=== PATIENT | male | born 1975 | race Caucasian/White ===

== ENCOUNTER 2017-08-04 15:28 | Emergency (ER) | payer SELFPAY | END 2017-08-04 19:08 | disposition left against medical advice (07) | LOC: ER 17:18 | DX: Z53.21 Procedure and treatment not carried out due to patient leaving prior to being seen by health care provider (principal) ==

== ENCOUNTER 2017-08-06 00:35 | Emergency (ER) | payer SELFPAY ==
[~2017-08-06] VITALS: Ht 162.6 cm; Wt 77.0 kg
[2017-08-06 04:44] LABS: BASOPHILS % 0.6 % (0.0-2.0); EOSINOPHILS % 0.2 % (0.0-5.0); HEMATOCRIT. 40.5 % (42.0-52.0); HEMOGLOBIN. 13.7 g/dL (14.0-18.0); LYMPHOCYTES % 8.8 % (20.0-50.0); MEAN CORPUSCULAR HEMOGLOBIN 28.2 pg (28.0-32.0); MEAN CORPUSCULAR VOLUME 83.4 fL (80.0-94.0); MEAN PLATELET VOLUME 9.3 fl (7.4-10.4); MONOCYTES % 11.2 % (2.0-8.0); NEUTROPHILS % 79.2 % (40.0-76.0); PLATELET 182 x1000/uL (130-400); RED BLOOD CELL COUNT 4.85 mill/uL (4.7-6.1); RED CELL DISTRIBUTION WIDTH 14.1 % (11.6-14.6)
[2017-08-06] MEDS ORDERED: KETOROLAC 30MG/ML VIAL IM ONE (04:45)
[2017-08-06] MEDS ORDERED: DEXAMETHASONE 10 MG/ML VIAL IM ONE (04:45)
[2017-08-06 05:10] LABS: CARBON DIOXIDE 28 mEq/L (21-32); CHLORIDE 101 mEq/L (98-107)
[2017-08-06] MEDS ORDERED: AMOXICILLIN/POTASSIUM CLAVULANATE 875/125MG TAB PO ONE (05:45)
[2017-08-06 06:39] VITALS: BP 138/85
[2017-08-07] MEDS ORDERED: SODIUM CHLORIDE 0.9% 1,000 ML IV NR (11:30)
== END 2017-08-06 07:40 | disposition home or self-care (01) ==
LOC: ER 00:35
DX: J36 Peritonsillar abscess (principal); E86.0 Dehydration; F17.210 Nicotine dependence, cigarettes, uncomplicated; D66 Hereditary factor VIII deficiency
CPT/HCPCS: 36415; 80053; 85025; 96372; 99284; J1100; J1885; Z7610

== ENCOUNTER 2019-05-31 19:58 | Emergency (ER) | payer MEDICAID ==
[~2019-05-31] VITALS: Ht 162.6 cm; Wt 105.0 kg
[2019-05-31 23:44] LABS: BASOPHILS % 0.4 % (0.0-2.0); EOSINOPHILS % 1.5 % (0.0-5.0); HEMATOCRIT. 40.1 % (42.0-52.0); HEMOGLOBIN. 13.7 g/dL (14.0-18.0); LYMPHOCYTES % 16.6 % (20.0-50.0); MEAN CORPUSCULAR HEMOGLOBIN 28.8 pg (28.0-32.0); MEAN CORPUSCULAR VOLUME 84.4 fL (80.0-94.0); MEAN PLATELET VOLUME 8.9 fl (7.4-10.4); MONOCYTES % 10.3 % (2.0-8.0); NEUTROPHILS % 71.2 % (40.0-76.0); PLATELET 149 x1000/uL (130-400); RED BLOOD CELL COUNT 4.75 mill/uL (4.7-6.1); RED CELL DISTRIBUTION WIDTH 14.3 % (11.6-14.6)
[2019-05-31 23:52] LABS: CHLORIDE 105 mEq/L (98-107)
[2019-06-01] MEDS ORDERED: POTASSIUM CHLORIDE INJ 40 MEQ in DEXT 5% WATER 250 ML IV ONE (02:00)
[2019-06-01] MEDS ORDERED: POTASSIUM CHLORIDE 20MEQ TABLET SR PO ONE (02:00)
[2019-06-01] MEDS ORDERED: HYDROCODONE/ACETAMINOPHEN 5/325MG TABLET PO ONE (02:45)
[2019-06-01] MEDS ORDERED: SODIUM CHLORIDE 0.9% 1,000 ML IV ONE (02:45)
[2019-06-01 03:29] LABS: PARTIAL THROMBOPLASTIN TIME 28.9 sec (23.4-31.0)
[2019-06-01 03:48] LABS: *AMPHETAMINES SCREEN URINE PRESUMTIVE POSITIVE (NEGATIVE); *BARBITURATES SCREEN URINE NEGATIVE (NEGATIVE); *BENZODIAZEPINES SCREEN URINE NEGATIVE (NEGATIVE); *COCAINE SCREEN URINE PRESUMTIVE POSITIVE (NEGATIVE)
[2019-06-01 03:49] LABS: CANNABINOID URINE SCREEN NEGATIVE (NEGATIVE); METHADONE URINE SCREEN NEGATIVE (NEGATIVE); OPIATES URINE SCREEN NEGATIVE (NEGATIVE); PHENCYCLIDINE URINE SCREEN NEGATIVE (NEGATIVE)
[2019-06-01] MEDS ORDERED: ONDANSETRON HCL 4MG/2ML INJ IV ONE (05:45)
[2019-06-01] MEDS ORDERED: MORPHINE SULFATE 4 MG/ML CPJ (NOT FOR IM USE) IV ONE (05:45)
[2019-06-01] MEDS ORDERED: HYDRALAZINE 20MG/ML VIAL IV ONE (05:45)
[2019-06-01 06:03] VITALS: BP 157/109
== END 2019-06-01 06:21 | disposition short-term general hospital (02) ==
LOC: ER 19:58
DX: S09.90XA Unspecified injury of head, initial encounter (principal); D66 Hereditary factor VIII deficiency; I10 Essential (primary) hypertension; H57.11 Ocular pain, right eye; F17.200 Nicotine dependence, unspecified, uncomplicated; Y04.0XXA Assault by unarmed brawl or fight, initial encounter; Y93.89 Activity, other specified; Y92.89 Other specified places as the place of occurrence of the external cause; Y99.8 Other external cause status
CPT/HCPCS: 36415; 70450; 70486; 71045; 80053; 80305; 80320; 84484; 85025; 85610; 85730; 93005; 96365; 96375; 99291; J0360; J2270; J2405; J3480; J7030; J7060; G0480

== ENCOUNTER 2019-08-18 09:57 | Emergency (ER) | payer OTHER | END 2019-08-18 11:21 | disposition left against medical advice (07) | LOC: ER 09:57 | DX: Z53.21 Procedure and treatment not carried out due to patient leaving prior to being seen by health care provider (principal) ==

== ENCOUNTER 2019-10-22 04:51 | Emergency (ER) | payer OTHER ==
[~2019-10-22] VITALS: Ht 167.6 cm; Wt 108.0 kg
[2019-10-22] MEDS ORDERED: HYDROCODONE/ACETAMINOPHEN 5/325MG TABLET PO ONE (06:30)
[2019-10-22 06:34] VITALS: BP 149/90
== END 2019-10-22 08:28 | disposition home or self-care (01) ==
LOC: ER 04:51
DX: S80.01XA Contusion of right knee, initial encounter (principal); D66 Hereditary factor VIII deficiency; V13.4XXA Pedal cycle driver injured in collision with car, pick-up truck or van in traffic accident, initial encounter; Y93.89 Activity, other specified; Y92.488 Other paved roadways as the place of occurrence of the external cause
CPT/HCPCS: 73562; 99283

== ENCOUNTER 2020-03-20 17:49 | Emergency (ER) | payer OTHER ==
[~2020-03-20] VITALS: Ht 162.6 cm; Wt 94.0 kg
[2020-03-20] MEDS ORDERED: LIDOCAINE HCL/EPINEPHRINE 1%-EPI 1:100,000 20 ML VIAL INFIL ONE (18:15)
[2020-03-20] MEDS ORDERED: TETANUS, DIPHTHERIA, PERTUSSIS VAC/PF 0.5ML (>7YR OLD) IM ONE (18:15)
[2020-03-20] MEDS ORDERED: DESMOPRESSIN ACETATE 28 MCG in SODIUM CHLORIDE 0.9% 50 ML IV SCH (18:30)
[2020-03-20 18:45] LABS: BASOPHILS % 0.7 % (0.0-2.0); EOSINOPHILS % 3.2 % (0.0-5.0); HEMATOCRIT. 32.7 % (42.0-52.0); HEMOGLOBIN. 11.2 g/dL (14.0-18.0); LYMPHOCYTES % 13.5 % (20.0-50.0); MEAN CORPUSCULAR HEMOGLOBIN 28.9 pg (28.0-32.0); MEAN CORPUSCULAR VOLUME 84.1 fL (80.0-94.0); MEAN PLATELET VOLUME 8.5 fl (7.4-10.4); MONOCYTES % 9.7 % (2.0-8.0); NEUTROPHILS % 72.9 % (40.0-76.0); PLATELET 235 x1000/uL (130-400); RED BLOOD CELL COUNT 3.89 mill/uL (4.7-6.1); RED CELL DISTRIBUTION WIDTH 15.2 % (11.6-14.6)
[2020-03-20 18:53] LABS: PARTIAL THROMBOPLASTIN TIME 32.5 sec (23.4-31.0); PROTHROMBIN TIME 10.4 sec (9.6-11.0)
[2020-03-20 18:59] LABS: CHLORIDE 109 mEq/L (98-107)
[2020-03-20 19:00] LABS: ETHANOL BLOOD 167 mg/dL
[2020-03-20] MEDS ORDERED: ACETAMINOPHEN 500MG TABLET PO ONE (22:15)
[2020-03-21 09:30] VITALS: BP 139/90
== END 2020-03-21 09:39 | disposition home or self-care (01) ==
LOC: ER 17:56
DX: S41.112A Laceration without foreign body of left upper arm, initial encounter (principal); S61.411A Laceration without foreign body of right hand, initial encounter; Y08.89XA Assault by other specified means, initial encounter; Y93.89 Activity, other specified; Y92.89 Other specified places as the place of occurrence of the external cause; Y99.8 Other external cause status; F17.290 Nicotine dependence, other tobacco product, uncomplicated
CPT/HCPCS: 12004; 36415; 70450; 80053; 80320; 85025; 85610; 85730; 86850; 86900; 86901; 86927; 90471; 90715; 96365; 99285; J2597; J3490; P9017; G0480

== ENCOUNTER 2020-12-31 21:52 | Emergency (ER) | payer OTHER ==
[~2020-12-31] VITALS: Ht 162.6 cm; Wt 96.0 kg
[2020-12-31] MEDS ORDERED: ONDANSETRON HCL 4MG/2ML INJ IV STA (23:04)
[2020-12-31] MEDS ORDERED: MORPHINE SULFATE 4 MG/ML CPJ (NOT FOR IM USE) IV STA (23:04)
[2020-12-31] MEDS ORDERED: SODIUM CHLORIDE 0.9% 1,000 ML IV ONE (23:15)
[2020-12-31 23:39] LABS: BASOPHILS % 0.8 % (0.0-2.0); EOSINOPHILS % 5.4 % (0.0-5.0); HEMATOCRIT. 24.5 % (42.0-52.0); HEMOGLOBIN. 8.1 g/dL (14.0-18.0); MEAN CORPUSCULAR HEMOGLOBIN 24.9 pg (28.0-32.0); MEAN CORPUSCULAR VOLUME 75.9 fL (80.0-94.0); MEAN PLATELET VOLUME 8.1 fl (7.4-10.4); MONOCYTES % 12.3 % (2.0-8.0); NEUTROPHILS % 56.5 % (40.0-76.0); PLATELET 175 x1000/uL (130-400); RED BLOOD CELL COUNT 3.23 mill/uL (4.7-6.1)
[2020-12-31 23:46] LABS: CHLORIDE 106 mEq/L (98-107)
[2020-12-31 23:53] LABS: PROTHROMBIN TIME 10.3 sec (9.6-11.0)
[2021-01-01 00:02] LABS: CLARITY URINE CLEAR (CLEAR); COLOR URINE YELLOW (YELLOW); KETONES URINE NEGATIVE (NEGATIVE); LEUKOCYTE ESTERASE URINE NEGATIVE (NEGATIVE); NITRITE URINE NEGATIVE (NEGATIVE); OCCULT BLOOD URINE NEGATIVE (NEGATIVE); PH URINE 5.5 (4.5-8.0); PROTEIN URINE NEGATIVE (NEGATIVE); SPECIFIC GRAVITY URINE 1.019 (1.005-1.030); UROBILINOGEN URINE 0.2 E.U./dL (0.2-1.0)
[2021-01-01] MEDS ORDERED: IOHEXOL-300 100 ML BOTTLE ONE (00:11)
[2021-01-01 04:13] VITALS: BP 118/81
== END 2021-01-01 04:13 | disposition short-term general hospital (02) ==
LOC: ER 21:52 → EDBEDREQ 01-01 00:17 → ER 01-01 04:13 → CANBEDREQ 01-01 06:29
DX: K92.2 Gastrointestinal hemorrhage, unspecified (principal); R10.31 Right lower quadrant pain; E83.51 Hypocalcemia; D64.9 Anemia, unspecified; D66 Hereditary factor VIII deficiency; F10.10 Alcohol abuse, uncomplicated; Y90.9 Presence of alcohol in blood, level not specified
CPT/HCPCS: 36415; 74177; 80053; 81003; 82270; 83690; 85025; 85610; 93005; 96374; 96375; 99285; J2270; J2405; J7030; Q9967; Z7610

== ENCOUNTER 2022-04-24 19:30 | Emergency (ER) | payer OTHER ==
[~2022-04-24] VITALS: Ht 165.1 cm; Wt 116.5 kg
[2022-04-24] MEDS ORDERED: IBUPROFEN 600MG TABLET PO ONE (21:45)
[2022-04-24] MEDS ORDERED: HYDRALAZINE HCL 10MG TABLET PO ONE (21:45)
[2022-04-24 21:50] VITALS: BP 169/113
== END 2022-04-24 23:42 | disposition home or self-care (01) ==
LOC: ER 19:30
DX: M25.562 Pain in left knee (principal); I10 Essential (primary) hypertension
CPT/HCPCS: 73562; 99283

== ENCOUNTER 2022-08-31 23:42 | Emergency (ER) | payer MEDICAID, OTHER ==
[~2022-08-31] VITALS: Ht 162.6 cm; Wt 132.0 kg
[2022-09-01] MEDS ORDERED: HYDROCODONE/ACETAMINOPHEN 5/325MG TABLET PO NR (01:51)
[2022-09-01] MEDS ORDERED: DESMOPRESSIN ACETATE 4MCG/ML AMP IV ONE (03:45)
[2022-09-01 04:08] LABS: BASOPHILS % 0.2 % (0.0-2.0); HEMATOCRIT. 36.7 % (42.0-52.0); HEMOGLOBIN. 12.4 g/dL (14.0-18.0); LYMPHOCYTES % 14.8 % (20.0-50.0); MEAN CORPUSCULAR VOLUME 82.8 fL (80.0-94.0); MEAN PLATELET VOLUME 9.3 fl (7.4-10.4); MONOCYTES % 10.5 % (2.0-8.0); NEUTROPHILS % 71.5 % (40.0-76.0); PLATELET 164 x1000/uL (130-400); RED BLOOD CELL COUNT 4.44 mill/uL (4.7-6.1); RED CELL DISTRIBUTION WIDTH 13.7 % (11.6-14.6)
[2022-09-01 04:14] LABS: CHLORIDE 100 mEq/L (98-107)
[2022-09-01 04:24] LABS: PARTIAL THROMBOPLASTIN TIME 33.2 sec (23.4-31.0); PROTHROMBIN TIME 10.6 sec (9.6-11.0)
[2022-09-01] MEDS ORDERED: HUMAN PROTHROMBIN COMPLX (PCC) 500 UNITS VIAL IV NR (06:30)
[2022-09-01] MEDS ORDERED: HYDROCODONE/ACETAMINOPHEN 5/325MG TABLET PO ONE ×2 (07:45→14:45)
[2022-09-01] MEDS ORDERED: POTASSIUM CHLORIDE 20MEQ TABLET SR PO NR (10:00)
[2022-09-01] MEDS ORDERED: MORPHINE SULFATE 2 MG/ML CPJ (NOT FOR IM USE) IV NR (10:00)
[2022-09-01 16:51] LABS: CLARITY URINE CLEAR (CLEAR); COLOR URINE YELLOW (YELLOW); KETONES URINE NEGATIVE (NEGATIVE); LEUKOCYTE ESTERASE URINE NEGATIVE (NEGATIVE); NITRITE URINE NEGATIVE (NEGATIVE); OCCULT BLOOD URINE NEGATIVE (NEGATIVE); PH URINE 5.5 (4.5-8.0); PROTEIN URINE TRACE (NEGATIVE); SPECIFIC GRAVITY URINE 1.026 (1.005-1.030)
[2022-09-01 18:11] VITALS: BP 140/78
== END 2022-09-01 18:27 | disposition short-term general hospital (02) ==
LOC: ER 23:42 → CANBEDREQ 09-01 22:28
DX: S80.01XA Contusion of right knee, initial encounter (principal); M25.461 Effusion, right knee; F12.10 Cannabis abuse, uncomplicated; D66 Hereditary factor VIII deficiency; E66.9 Obesity, unspecified; Z68.43 Body mass index [BMI] 50.0-59.9, adult; Z91.14 Patient's other noncompliance with medication regimen; W01.0XXA Fall on same level from slipping, tripping and stumbling without subsequent striking against object, initial encounter; Y93.89 Activity, other specified; Y92.89 Other specified places as the place of occurrence of the external cause
CPT/HCPCS: 36415; 73562; 76881; 80053; 81003; 85025; 85044; 85384; 85610; 85730; 86850; 86900; 86901; 93971; 96374; 96375; 99285; C9132; J2270; J2597

== ENCOUNTER 2022-11-18 09:57 | Inpatient (IN) | payer OTHER ==
[~2022-11-18] VITALS: Ht 162.6 cm; Wt 124.3 kg
[2022-11-18 15:15] LABS: BASOPHILS % 0.7 % (0.0-2.0); EOSINOPHILS % 1.1 % (0.0-5.0); LYMPHOCYTES % 20.9 % (20.0-50.0); MEAN CORPUSCULAR HEMOGLOBIN 22.3 pg (28.0-32.0); MEAN CORPUSCULAR VOLUME 71.1 fL (80.0-94.0); MEAN PLATELET VOLUME 8.5 fl (7.4-10.4); MONOCYTES % 11.9 % (2.0-8.0); NEUTROPHILS % 65.4 % (40.0-76.0); PLATELET 231 x1000/uL (130-400); RED BLOOD CELL COUNT 3.02 mill/uL (4.7-6.1); RED CELL DISTRIBUTION WIDTH 19.4 % (11.6-14.6)
[2022-11-18 15:22] LABS: CHLORIDE 101 mEq/L (98-107)
[2022-11-18 15:30] LABS: ETHANOL BLOOD < 10 mg/dL
[2022-11-18 15:31] LABS: PROTHROMBIN TIME 11.2 sec (9.6-11.0)
[2022-11-18 15:37] LABS: HEMATOCRIT. 21.5 % (42.0-52.0); HEMOGLOBIN. 6.7 g/dL (14.0-18.0)
[2022-11-18] MEDS ORDERED: ONDANSETRON HCL 4MG/2ML INJ IV ONE (23:00)
[2022-11-18] MEDS ORDERED: MORPHINE SULFATE 4 MG/ML CPJ (NOT FOR IM USE) IV ONE (23:00)
[2022-11-19] VITALS (9 sets, daily range): BP systolic 92–140; BP diastolic 37–82
[2022-11-19] MEDS ORDERED: AMLO10TA80 PO (02:37)
[2022-11-19] MEDS ORDERED: HYDR-4134 PO (02:37)
[2022-11-19] MEDS ORDERED: SUCR1ORA15 PO (02:37)
[2022-11-19 03:18] LABS: HEPATITIS B SURFACE ANTIGEN NEGATIVE
[2022-11-19] MEDS ORDERED: DEXT 5%/0.45% NACL KCL 20MEQ/L 1,000 ML IV ONE (05:30)
[2022-11-19] MEDS: PANTOPRAZOLE SODIUM 40 MG/VIAL IV SCH (08:44)
[2022-11-19 10:15] LABS: BASOPHILS % 0.8 % (0.0-2.0); EOSINOPHILS % 11.5 % (0.0-5.0); HEMATOCRIT. 30.9 % (42.0-52.0); LYMPHOCYTES % 21.7 % (20.0-50.0); MEAN CORPUSCULAR HEMOGLOBIN 27.2 pg (28.0-32.0); MEAN CORPUSCULAR VOLUME 83.7 fL (80.0-94.0); MEAN PLATELET VOLUME 8.9 fl (7.4-10.4); MONOCYTES % 7.2 % (2.0-8.0); NEUTROPHILS % 58.8 % (40.0-76.0); PLATELET 209 x1000/uL (130-400); RED BLOOD CELL COUNT 3.69 mill/uL (4.7-6.1); RED CELL DISTRIBUTION WIDTH 18.6 % (11.6-14.6)
[2022-11-19] MEDS ORDERED: NALOXONE HCL 0.4MG/ML VIAL IV PRN (12:15)
[2022-11-19] MEDS ORDERED: ACETAMINOPHEN 325MG TABLET PO PRN ×2 (12:15)
[2022-11-19] MEDS ORDERED: IOHEXOL-350 100 ML BOTTLE ONE (12:24)
[2022-11-19] MEDS: MORPHINE SULFATE 2 MG/ML CPJ (NOT FOR IM USE) IV PRN ×3 (13:30→20:31)
[2022-11-19] MEDS: SUCRALFATE 1 G/10 ML UDC PO SCH ×2 (13:30→16:53)
[2022-11-19] MEDS: HYDROCORTISONE ACETATE 25MG SUPP PR SCH (20:31)
[2022-11-19 20:59] LABS: BASOPHILS % 0.6 % (0.0-2.0); EOSINOPHILS % 2.4 % (0.0-5.0); LYMPHOCYTES % 21.4 % (20.0-50.0); MEAN CORPUSCULAR HEMOGLOBIN 23.9 pg (28.0-32.0); MEAN CORPUSCULAR VOLUME 77.6 fL (80.0-94.0); MONOCYTES % 11.9 % (2.0-8.0); NEUTROPHILS % 63.7 % (40.0-76.0); PLATELET 210 x1000/uL (130-400); RED BLOOD CELL COUNT 2.93 mill/uL (4.7-6.1); RED CELL DISTRIBUTION WIDTH 20.5 % (11.6-14.6)
[2022-11-19] MEDS ORDERED: INFLUENZA VACCINE 05/PF 0.5 ML SYRINGE IM ONE (21:00)
[2022-11-19] MEDS ORDERED: PNEUMOCOCCAL 23-VAL P-SAC VAC 0.5 ML IM ONE (21:00)
[2022-11-19 21:25] LABS: HEMATOCRIT. 22.8 % (42.0-52.0)
[2022-11-19 21:31] LABS: FERRITIN 10 ng/mL (22-322)
[2022-11-19 21:42] LABS: FOLIC ACID (FOLATE) SERUM >20 ng/mL ng/mL (>5.38); VITAMIN B12 SERUM 386 pg/mL (211-911)
[2022-11-20] VITALS (13 sets, daily range): BP systolic 103–131; BP diastolic 56–83
[2022-11-20] MEDS: MORPHINE SULFATE 2 MG/ML CPJ (NOT FOR IM USE) IV PRN ×2 (05:27→21:57)
[2022-11-20] MEDS: SUCRALFATE 1 G/10 ML UDC PO SCH ×3 (06:40→17:43)
[2022-11-20 07:04] LABS: BASOPHILS % 0.6 % (0.0-2.0); EOSINOPHILS % 3.2 % (0.0-5.0); LYMPHOCYTES % 20.8 % (20.0-50.0); MEAN CORPUSCULAR HEMOGLOBIN 25.1 pg (28.0-32.0); MEAN CORPUSCULAR VOLUME 75.9 fL (80.0-94.0); MEAN PLATELET VOLUME 8.8 fl (7.4-10.4); MONOCYTES % 13.7 % (2.0-8.0); NEUTROPHILS % 61.7 % (40.0-76.0); PLATELET 184 x1000/uL (130-400); RED BLOOD CELL COUNT 2.45 mill/uL (4.7-6.1); RED CELL DISTRIBUTION WIDTH 21.3 % (11.6-14.6)
[2022-11-20 07:23] LABS: CHLORIDE 105 mEq/L (98-107)
[2022-11-20] MEDS: PANTOPRAZOLE SODIUM 40 MG/VIAL IV SCH (08:50)
[2022-11-20] MEDS: HYDROCODONE/ACETAMINOPHEN 5/325MG TABLET PO PRN (08:51)
[2022-11-20 10:29] LABS: HEMATOCRIT. 18.6 % (42.0-52.0); HEMOGLOBIN. 6.1 g/dL (14.0-18.0)
[2022-11-20] MEDS: IRON SUCROSE COMPLEX 100 MG/5 ML ML IV SCH (11:12)
[2022-11-20] MEDS: HYDROCORTISONE ACETATE 25MG SUPP PR SCH ×2 (12:49→21:56)
[2022-11-20 15:30] LABS: BASOPHILS % 0.5 % (0.0-2.0); EOSINOPHILS % 3.1 % (0.0-5.0); LYMPHOCYTES % 20.7 % (20.0-50.0); MEAN CORPUSCULAR HEMOGLOBIN 25.4 pg (28.0-32.0); MEAN CORPUSCULAR VOLUME 76.7 fL (80.0-94.0); MONOCYTES % 14.1 % (2.0-8.0); NEUTROPHILS % 61.6 % (40.0-76.0); PLATELET 162 x1000/uL (130-400); RED BLOOD CELL COUNT 2.24 mill/uL (4.7-6.1); RED CELL DISTRIBUTION WIDTH 21.3 % (11.6-14.6)
[2022-11-20 16:02] LABS: HEMATOCRIT. 17.2 % (42.0-52.0); HEMOGLOBIN. 5.7 g/dL (14.0-18.0)
[2022-11-20 20:13] LABS: BASOPHILS % 0.7 % (0.0-2.0); EOSINOPHILS % 2.9 % (0.0-5.0); LYMPHOCYTES % 20.4 % (20.0-50.0); MEAN CORPUSCULAR HEMOGLOBIN 25.3 pg (28.0-32.0); MEAN CORPUSCULAR VOLUME 78.2 fL (80.0-94.0); MEAN PLATELET VOLUME 9.1 fl (7.4-10.4); MONOCYTES % 13.6 % (2.0-8.0); NEUTROPHILS % 62.4 % (40.0-76.0); PLATELET 171 x1000/uL (130-400); RED BLOOD CELL COUNT 2.73 mill/uL (4.7-6.1); RED CELL DISTRIBUTION WIDTH 20.8 % (11.6-14.6)
[2022-11-20 20:21] LABS: HEMATOCRIT. 21.4 % (42.0-52.0); HEMOGLOBIN. 6.9 g/dL (14.0-18.0)
[2022-11-21] VITALS (10 sets, daily range): BP systolic 116–150; BP diastolic 64–88
[2022-11-21 01:24] LABS: BASOPHILS % 0.7 % (0.0-2.0); EOSINOPHILS % 3.1 % (0.0-5.0); HEMATOCRIT. 21.1 % (42.0-52.0); LYMPHOCYTES % 18.8 % (20.0-50.0); MEAN CORPUSCULAR HEMOGLOBIN 25.6 pg (28.0-32.0); MEAN CORPUSCULAR VOLUME 78.1 fL (80.0-94.0); MEAN PLATELET VOLUME 8.9 fl (7.4-10.4); MONOCYTES % 11.2 % (2.0-8.0); NEUTROPHILS % 66.2 % (40.0-76.0); PLATELET 168 x1000/uL (130-400); RED CELL DISTRIBUTION WIDTH 20.4 % (11.6-14.6)
[2022-11-21 01:43] LABS: HEMOGLOBIN. 6.9 g/dL (14.0-18.0)
[2022-11-21] MEDS: SUCRALFATE 1 G/10 ML UDC PO SCH ×3 (05:53→17:40)
[2022-11-21] MEDS: PANTOPRAZOLE SODIUM 40 MG/VIAL IV SCH (08:27)
[2022-11-21] MEDS: HYDROCORTISONE ACETATE 25MG SUPP PR SCH ×2 (08:28→21:51)
[2022-11-21] MEDS: HYDROCODONE/ACETAMINOPHEN 5/325MG TABLET PO PRN ×2 (08:28→23:13)
[2022-11-21 10:39] LABS: CHLORIDE 108 mEq/L (98-107)
[2022-11-21] MEDS: IRON SUCROSE COMPLEX 100 MG/5 ML ML IV SCH (10:48)
[2022-11-21] MEDS: MORPHINE SULFATE 2 MG/ML CPJ (NOT FOR IM USE) IV PRN ×2 (15:40→21:51)
[2022-11-21] MEDS ORDERED: POTASSIUM CHLORIDE 20MEQ/PACKET PO NR (16:30)
[2022-11-21] MEDS: DEXT 5%/0.9% NACL 1,000 ML IV SCH (23:18)
[2022-11-22] VITALS (8 sets, daily range): BP systolic 114–180; BP diastolic 64–100
[2022-11-22] MEDS: MORPHINE SULFATE 2 MG/ML CPJ (NOT FOR IM USE) IV PRN ×3 (02:12→20:46)
[2022-11-22 03:11] LABS: HEMATOCRIT. 27.6 % (42.0-52.0); HEMOGLOBIN. 8.9 g/dL (14.0-18.0); MEAN CORPUSCULAR HEMOGLOBIN 25.6 pg (28.0-32.0); MEAN CORPUSCULAR VOLUME 79.5 fL (80.0-94.0); MEAN PLATELET VOLUME 8.7 fl (7.4-10.4); PLATELET 186 x1000/uL (130-400); RED BLOOD CELL COUNT 3.47 mill/uL (4.7-6.1); RED CELL DISTRIBUTION WIDTH 20.9 % (11.6-14.6)
[2022-11-22 03:15] LABS: PROTHROMBIN TIME 10.3 sec (9.6-11.0)
[2022-11-22 04:26] LABS: CHLORIDE 109 mEq/L (98-107)
[2022-11-22] MEDS ORDERED: CLONIDINE 0.1MG TABLET PO PRN (04:30)
[2022-11-22 04:34] LABS: PLATELET ESTIMATE NORMAL
[2022-11-22] MEDS: HYDROCODONE/ACETAMINOPHEN 5/325MG TABLET PO PRN (04:52)
[2022-11-22] MEDS: PANTOPRAZOLE SODIUM 40 MG/VIAL IV SCH (09:40)
[2022-11-22] MEDS: HYDROCORTISONE ACETATE 25MG SUPP PR SCH ×2 (09:40→20:45)
[2022-11-22] MEDS: IRON SUCROSE COMPLEX 100 MG/5 ML ML IV SCH (10:30)
[2022-11-22] MEDS ORDERED: PROPOFOL 200MG/20ML VIAL IV ONE (12:09)
[2022-11-22] MEDS ORDERED: MIDAZOLAM HCL 2 MG/2 ML VIAL ONE (12:09)
[2022-11-22] MEDS ORDERED: LIDOCAINE HCL 1% 20ML VIAL (Pyxis) INJ ONE (12:11)
[2022-11-22] MEDS ORDERED: DEXAMETHASONE 4MG/ML 1ML VIAL ONE (12:11)
[2022-11-22] MEDS ORDERED: ONDANSETRON HCL 4MG/2ML INJ ONE (12:12)
[2022-11-22] MEDS: DEXT 5%/0.9% NACL 1,000 ML IV SCH (13:54)
[2022-11-22] MEDS: OMEPRAZOLE 20MG CAPSULE EXTENDED RELEASE PO SCH (13:54)
[2022-11-23] MEDS: MORPHINE SULFATE 2 MG/ML CPJ (NOT FOR IM USE) IV PRN ×2 (02:56→08:39)
[2022-11-23 04:00] VITALS: BP 105/60
[2022-11-23] MEDS: OMEPRAZOLE 20MG CAPSULE EXTENDED RELEASE PO SCH (06:22)
[2022-11-23 07:38] VITALS: BP 138/86
[2022-11-23] MEDS: HYDROCORTISONE ACETATE 25MG SUPP PR SCH (08:38)
[2022-11-23] MEDS ORDERED: OMEP20CA14 PO (10:42)
[2022-11-23] MEDS: IRON SUCROSE COMPLEX 100 MG/5 ML ML IV SCH (11:13)
[2022-11-23 12:25] VITALS: BP 146/84
[2022-11-23 12:58] LABS: BASOPHILS % 0.4 % (0.0-2.0); EOSINOPHILS % 0.5 % (0.0-5.0); HEMATOCRIT. 25.8 % (42.0-52.0); HEMOGLOBIN. 8.3 g/dL (14.0-18.0); LYMPHOCYTES % 13.3 % (20.0-50.0); MEAN CORPUSCULAR HEMOGLOBIN 25.9 pg (28.0-32.0); MEAN PLATELET VOLUME 9.5 fl (7.4-10.4); MONOCYTES % 8.7 % (2.0-8.0); NEUTROPHILS % 77.1 % (40.0-76.0); PLATELET 189 x1000/uL (130-400); RED BLOOD CELL COUNT 3.18 mill/uL (4.7-6.1); RED CELL DISTRIBUTION WIDTH 21.7 % (11.6-14.6)
[2022-11-23 13:00] LABS: CHLORIDE 107 mEq/L (98-107)
[2022-11-23 14:17] VITALS: BP 134/82
[2022-11-23 16:12] VITALS: BP 134/82
== END 2022-11-23 19:10 | disposition home or self-care (01) | DRG 241 ==
LOC: ER 10:11 → 7EST 22:54
PROVIDERS: ADMIT Internal Medicine; ATTEND Internal Medicine
PROC: 30233N1 Transfusion of Nonautologous Red Blood Cells into Peripheral Vein, Percutaneous Approach (ICD-10-PCS; 2022-11-18)
PROC: 0DJ08ZZ Inspection of Upper Intestinal Tract, Via Natural or Artificial Opening Endoscopic (ICD-10-PCS; principal; 2022-11-22)
DX: K29.21 Alcoholic gastritis with bleeding (principal); D66 Hereditary factor VIII deficiency; D68.9 Coagulation defect, unspecified; E46 Unspecified protein-calorie malnutrition; D63.1 Anemia in chronic kidney disease; D50.9 Iron deficiency anemia, unspecified; F10.10 Alcohol abuse, uncomplicated; B19.20 Unspecified viral hepatitis C without hepatic coma; E87.6 Hypokalemia; E66.9 Obesity, unspecified; Z20.822 Contact with and (suspected) exposure to COVID-19; K64.9 Unspecified hemorrhoids; R74.01 Elevation of levels of liver transaminase levels; F17.210 Nicotine dependence, cigarettes, uncomplicated; Z68.42 Body mass index [BMI] 45.0-49.9, adult; Z59.00 Homelessness unspecified
CPT/HCPCS: 36415; 74174; 76700; 80048; 80053; 80076; 80320; 82270; 82607; 82728; 82746; 83540; 83550; 85018; 85025; 85044; 85240; 86803; 86850; 86900; 86920; 87340; 87426; 90686; 90732; 93971; 99291; C9113; J1100; J2250; J2270; J2405; J2704; J3490; J7042; P9016; Q9967; G0480

== ENCOUNTER 2023-08-06 17:03 | Emergency (ER) | payer OTHER ==
[~2023-08-06] VITALS: Ht 177.8 cm; Wt 120.0 kg
[~2023-08-06 17:03] MED LIST: AMLO10TA80 PO; HYDR-4134 PO; OMEP20CA14 PO; SUCR1ORA15 PO
[2023-08-06 17:07] VITALS: O2SAT 98
[2023-08-06] MEDS ORDERED: NA PHOS,M-B/NA PHOS,DI-BA ENEMA 118ML PR ONE (18:00)
[2023-08-06] MEDS ORDERED: BISACODYL 10MG SUPP PR ONE (18:30)
[2023-08-06] MEDS ORDERED: POLYETHYLENE GLYCOL 3350 (17GM) 1 DOSE PACK PO ONE (20:30)
[2023-08-06 21:05] LABS: HEMATOCRIT. 38.2 % (42.0-52.0); HEMOGLOBIN. 12.2 g/dL (14.0-18.0); MEAN CORPUSCULAR VOLUME 84.5 fL (80.0-94.0); MEAN PLATELET VOLUME 9.7 fl (7.4-10.4); PLATELET 227 x1000/uL (130-400); RED BLOOD CELL COUNT 4.53 mill/uL (4.7-6.1); RED CELL DISTRIBUTION WIDTH 15.4 % (11.6-14.6)
[2023-08-06 21:11] LABS: ALANINE AMINOTRANSFERASE 65 IU/L (10-49); ALBUMIN 3.9 g/dL (3.2-4.8); ASPARTATE AMINOTRANSFERASE 40 IU/L (<34); BILIRUBIN TOTAL 1.1 mg/dL (0.1-1.0); CALCIUM 8.5 mg/dL (8.7-10.4); CARBON DIOXIDE 22 mEq/L (21-32); CHLORIDE 102 mEq/L (98-107); CREATININE 0.9 mg/dL (0.6-1.3); GLUCOSE 236 mg/dL (70-105); POTASSIUM 3.1 mEq/L (3.5-5.1); PROTEIN TOTAL 6.9 g/dL (6.0-8.3); SODIUM 136 mEq/L (136-145); UREA NITROGEN BLOOD 13 mg/dL (9-23)
[2023-08-06 21:12] LABS: DIFFERENTIAL COMMENT 1
[2023-08-06] MEDS ORDERED: POTASSIUM CHLORIDE 20MEQ TABLET SR PO ONE (21:45)
[2023-08-06 22:02] LABS: ANISOCYTOSIS 1+; PLATELET ESTIMATE NORMAL
[2023-08-06] MEDS ORDERED: CEFTRIAXONE 1GM PREMIX 50 ML IV ONE (22:15)
[2023-08-06] MEDS ORDERED: METRONIDAZOLE 500 MG PREMIX 100 ML IV ONE (22:15)
[2023-08-07] MEDS ORDERED: SODIUM CHLORIDE 0.9% 1,000 ML IV ONE (00:30)
[2023-08-07 00:35] VITALS: BP 113/87; PULSE 115; RESP 19; TEMP 98.2
[2023-08-07 00:42] LABS: HEMATOCRIT. 34.5 % (42.0-52.0); HEMOGLOBIN. 11.2 g/dL (14.0-18.0); MEAN CORPUSCULAR HGB CONC 32.4 g/dL (31.0-37.0); MEAN CORPUSCULAR VOLUME 83.3 fL (80.0-94.0); MEAN PLATELET VOLUME 9.2 fl (7.4-10.4); PLATELET 218 x1000/uL (130-400); RED BLOOD CELL COUNT 4.14 mill/uL (4.7-6.1); RED CELL DISTRIBUTION WIDTH 15.1 % (11.6-14.6); WHITE BLOOD COUNT 15.3 x1000/uL (4.5-11.0)
[2023-08-07 00:45] LABS: DIFFERENTIAL COMMENT 1
[2023-08-07 08:04] LABS: PLATELET ESTIMATE NORMAL
== END 2023-08-07 01:18 | disposition short-term general hospital (02) ==
LOC: ER 17:03
DX: K59.00 Constipation, unspecified (principal); Z20.822 Contact with and (suspected) exposure to COVID-19
CPT/HCPCS: 80053; 85025 ×2; 87040; 36415 ×2; 74176; 96365; 99285; 87426; 86850; 86900; 86901; 96361; Z7610; J0696; J3490; C9803; J7030